=== PATIENT | female | born 1975 | race Caucasian/White ===

== ENCOUNTER 2016-09-05 16:19 | Emergency (ER) | payer OTHER ==
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
[~2016-09-05 16:19] MED LIST: FLAGYL PO; LEVAQUIN PO; LEXAPRO5 MG PO; NORCO 10-325 TA1 TAB PO; PRILOSEC PO; VESICARE PO; ZYRTEC10 M1 PO
== END 2016-09-05 17:28 | disposition home or self-care (01) ==
LOC: SED 16:19
DX: S13.4XXA Sprain of ligaments of cervical spine, initial encounter (principal); Z88.0 Allergy status to penicillin; Z88.1 Allergy status to other antibiotic agents; V49.50XA Passenger injured in collision with unspecified motor vehicles in traffic accident, initial encounter; Y92.410 Unspecified street and highway as the place of occurrence of the external cause
CPT/HCPCS: 72040; 99283

== ENCOUNTER 2017-01-13 01:13 | Emergency (ER) | payer OTHER ==
[~2017-01-13] VITALS: Ht 154.9 cm; Wt 72.6 kg
[2017-01-13 02:25] LABS: URINE SOURCE CLEAN CATCH
[2017-01-13 02:27] LABS: URINE APPEARANCE CLEAR; URINE BILIRUBIN NEG (NEG); URINE BLOOD 2+ (NEG); URINE COLOR YELLOW; URINE GLUCOSE NEG (NORM); URINE KETONE TRACE (NEG); URINE LEUKOCYTE ESTERASE NEG (NEG); URINE NITRATE NEG (NEG); URINE PH 5.5 (5-8); URINE PROTEIN NEG (NEG); URINE UROBILINOGEN 0.2 MG/DL (NORM)
[2017-01-13 02:34] LABS: MICRO INDICATED? YES
[2017-01-13 02:36] LABS: BASOPHIL# 0.1 X10e3 (0-0.3); BASOPHIL% 0.5 % (0-2.5); HEMATOCRIT 33.6 % (35.0-45.0); HEMOGLOBIN 10.3 gm/dL (12.0-16.0); LYMPHOCYTE# 1.1 X10e3 (1.0-3.5); LYMPHOCYTE% 7.7 % (17.0-45.0); MEAN CELL VOLUME 69.2 FL (83-96); MEAN CORPUSCULAR HEMOGLOBIN 21.3 PG (28-34); MEAN CORPUSCULAR HGB CONC 30.7 g/dL (30-36); MEAN PLATELET VOLUME 8.5 FL (6.5-11.5); MONOCYTE# 0.8 X10e3 (0-1.0); MONOCYTE% 5.7 % (3.0-12.0); NEUTROPHIL# 12.2 X10e3 (1.5-7.1); NEUTROPHIL% 86.1 % (40-75); PLATELET COUNT 424 X10e3 (140-420); RED BLOOD COUNT 4.85 X10e (3.90-5.30); RED CELL DISTRIBUTION WIDTH 17.3 % (11.0-15.5); WHITE BLOOD COUNT 14.2 X10e3 (4.0-10.5)
[2017-01-13 02:36] LABS: CULTURE INDICATED? YES; URINE BACTERIA 2+ (NEG); URINE RBC 50-100 /[HPF] (0-2); URINE SQUAMOUS EPITHELIAL CELL FEW /[HPF]
[2017-01-13 02:37] LABS: URINE MUCUS PRESENT
[2017-01-13 02:38] LABS: INR 1.3; PROTHROMBIN TIME (PATIENT) 14.7 SECONDS (9.5-12.4)
[2017-01-13 02:41] LABS: DIFF IND NO
[2017-01-13 02:46] LABS: PARTIAL THROMBOPLASTIN TIME 26.2 SECONDS (25.6-38.1)
[2017-01-13 02:47] LABS: BILIRUBIN, DIRECT 0.1 mg/dL (0.0-0.2); BILIRUBIN,INDIRECT 0.5 mg/dL (0.0-0.9); BILIRUBIN,TOTAL 0.6 mg/dL (0.2-2.0); BUN/CREATININE RATIO 11.11; CALCIUM SERUM 8.6 mg/dL (8.4-10.2); CREATININE SERUM 0.9 mg/dL (0.6-1.4); POTASSIUM 3.3 mmol/L (3.5-5.1); PROTEIN TOTAL SERUM 8.2 g/dL (6.0-8.3)
== END 2017-01-13 05:46 | disposition home or self-care (01) ==
LOC: SED 01:13
PROVIDERS: Emergency Medicine
DX: R10.84 Generalized abdominal pain (principal); R11.2 Nausea with vomiting, unspecified; R19.7 Diarrhea, unspecified; E86.0 Dehydration; E87.1 Hypo-osmolality and hyponatremia; Z88.0 Allergy status to penicillin; Z88.1 Allergy status to other antibiotic agents; Z79.899 Other long term (current) drug therapy
CPT/HCPCS: 36415; 80048; 80076; 81003; 83690; 84703; 85025; 85610; 85730; 87045; 87086; 87427; 87493; 87899; 96361; 96374; 96375; 99284; C9113; J2405